=== PATIENT | female | born 1985 ===

== ENCOUNTER 2016-05-01 19:09 | Emergency (ER) | payer BC, OTHER ==
[2016-05-01 19:14] VITALS: BP 119/78
[2016-05-01] MEDS ORDERED: Ibuprofen TAB* 400 MG PO ONE (19:38)
--- NOTE | 2016-05-01 19:44 | ED ---
Lower Extremity - HPI Summary HPI Summary: Patient was working with her horse this morning when it stepped on her right foot. She was only wearing socks and plastic "Crocs". Her pain has increased over the day despite rest and 400mg of ibuprofen. She is able to bear weight with pain. She has a small abrasion on top of her foot and her tetanus is up to date. She denies prior injury to this foot. No N/T. - History of Current Complaint Chief Complaint: EDExtremityLower Stated Complaint: RT FOOT INJURY-STEPPED ON BY A HORSE Time Seen by Provider: 05/01/16 19:28 Hx Obtained From: Patient Hx Last Menstrual Period: 08-21-15 Mechanism Of Injury: Unknown - crush injury from horse hoove Onset of Pain: Immediate Onset/Duration: Still Present Severity Initially: Mild Severity Currently: Severe Pain Intensity: 7 Timing: Constant Location: Is Discrete @ - right foot Character Of Pain: Dull, Aching Associated Signs And Symptoms: Positive: Swelling, Bruising Aggravating Factor(s): Standing, Movement Alleviating Factor(s): Nothing Able to Bear Weight: Yes - with pain - Allergies/Home Medications Allergies/Adverse Reactions: Allergies Allergy/AdvReac Type Severity Reaction Status Date / Time No Known Allergies Allergy Verified 05/01/16 19:14 PMH/Surg Hx/FS Hx/Imm Hx Previously Healthy: Yes Endocrine/Hematology History: Denies: Hx Anticoagulant Therapy, Hx Diabetes, Hx Thyroid Disease Cardiovascular History: Denies: Hx Congestive Heart Failure, Hx Deep Vein Thrombosis, Hx Hypertension , Hx Myocardial Infarction, Hx Pacemaker/ICD Respiratory History: Denies: Hx Asthma, Hx Chronic Obstructive Pulmonary Disease (COPD), Hx Lung Cancer, Hx Pneumonia, Hx Pulmonary Embolism GI History: Denies: Hx Gall Bladder Disease, Hx Gastrointestinal Bleed, Hx Ulcer, Hx Urosepsis History: Denies: Hx Kidney Stones, Hx Renal Disease Neurological History: Denies: Hx Dementia, Hx Migraine, Hx Seizures, Hx Transient Ischemic Attacks (TIA) Psychiatric History: Denies: Hx Anxiety, Hx Depression, Hx Schizophrenia, Hx Bipolar Disorder - Surgical History Surgery Procedure, Year, and Place: 2xRIGHT knee surgery. 2xLEFT knee surgery. Infectious Disease History: No Infectious Disease History: Denies: Traveled Outside the [place] in Last 30 Days - Family History Known Family History: Negative: None, Unknown, Cardiac Disease, Hypertension, Diabetes, Renal Disease, Respiratory Disease, Seizure Disorder, Blood Disorder, Other - Social History Occupation: Student Lives: With Family Alcohol Use: Rare Substance Use Type: Reports: None Smoking Status (MU): Never Smoked Tobacco Review of Systems Positive: Myalgia, Edema Positive: Bruising - dorsum of right foot Negative: Weakness, Paresthesia, Numbness All Other Systems Reviewed And Are Negative: Yes Physical Exam Triage Information Reviewed: Yes Vital Signs On Initial Exam: Initial Vitals Temp Pulse Resp BP Pulse Ox 97.9 F 79 16 119/78 100 05/01/16 19:11 05/01/16 19:11 05/01/16 19:11 05/01/16 19:11 05/01/16 19:11 Vital Signs Reviewed: Yes Appearance: Positive: Well-Appearing, Well-Nourished, Pain Distress Skin: Positive: Warm, Skin Color Reflects Adequate Perfusion, Dry, Tender - ecchymosis dorsum of right foot, Soft Head/Face: Positive: Normal Head/Face Inspection Eyes: Positive: EOMI, ANITRA, Conjunctiva Clear ENT: Positive: Hearing grossly normal Respiratory/Lung Sounds: Positive: Breath Sounds Present Cardiovascular: Positive: RRR Musculoskeletal: Positive: Limited @ - movement of the digits of the right foot is limited due to pain; FROM right ankle, Pain @ - TTP dorsum of right mid and distal metacarpals Neurological: Positive: Sensory/Motor Intact, Alert, Oriented to Person Place, Time, [place] Bundle Intact Distally, Abnormal Gait Psychiatric: Positive: Affect/Mood Appropriate AVPU Assessment: Alert - [place] Coma Scale Coma Scale Total: 15 Diagnostics - Vital Signs Vital Signs Temp Pulse Resp BP Pulse Ox 05/01/16 19:11 97.9 F 79 16 119/78 100 - Laboratory Lab Statement: Any lab studies that have been ordered have been reviewed, and results considered in the medical decision making process. - Radiology No standard instances Xray Interpretation: No Acute Changes Radiology Interpretation Completed By: Radiologist Lower Extremity Course/Dx - Diagnoses Differential Diagnosis/HQI/PQRI: Positive: Arthritis, Bursitis, Compartment Syndrome, Contusion, Fracture (Closed), Infection, Puncture Wound, Sprain, Strain Provider Diagnoses: Contusion of right foot, Abrasion foot/toe Discharge - Discharge Plan Condition: Stable Disposition: HOME Patient Education Materials: Foot Contusion (ED) Referrals: [facility] [place] [facility] [Outside] Additional Instructions: Please wear the shoe provided until your pain improves and take 600mg of ibuprofen three times daily with meals for the next 5-7 days to reduce swelling and pain. Elevate your foot above your heart and ice for 20 minutes several times daily to reduce swelling and pain as well. Use the crutches to keep weight off your foot until your pain improves. Follow-up with your primary care provider if your symptoms do not begin to improve in the next 7-10 days. Return to the emergency department if symptoms worsen.
--- NOTE | 2016-05-01 20:45 | RAD ---
INDICATION: Right foot pain and swelling after a horse stepped on her foot COMPARISON: None. TECHNIQUE: 3 views of the right foot were obtained. FINDINGS: The adequately corticated bones are properly aligned. Joint spaces appear maintained. No fracture, dislocation or focal bony abnormality is seen. IMPRESSION: Normal radiograph of the right foot. If the patient's symptoms persist, follow-up imaging is recommended.
== END 2016-05-01 21:02 | disposition home or self-care (01) ==
LOC: ED 19:09
DX: S90.31XA Contusion of right foot, initial encounter (principal); S90.414A Abrasion, right lesser toe(s), initial encounter; R60.0 Localized edema; W55.19XA Other contact with horse, initial encounter; Y93.9 Activity, unspecified; Y92.9 Unspecified place or not applicable
CPT/HCPCS: 99282; A9270-GY